=== PATIENT | male | born 1990 | race Caucasian/White ===

== ENCOUNTER 2016-09-23 08:21 | Emergency (ER) | payer MEDICAID ==
[~2016-09-23] VITALS: Ht 185.4 cm; Wt 117.9 kg
[~2016-09-23 08:21] MED LIST: ALBUTEROL2.5 MG/0.5 INH; AMOXICILLIN500 MG PO; AMOXIL500 MG PO; ANAPROX DS550 MG PO; ANTIVERT/2525 MG PO; AUGMENTIN 875875 MG PO; BACTRIM DS 8001 TA1 PO; CIPRO500 MG PO; CLARITIN10 MG PO; FLEXERIL10 MG PO; FLONASE 0.05% 121 EA NAS; LOMOTIL 0.025 M1 TA1 PO; MEDROL DOSEPAK4 MG PO; MOTRIN600 MG PO; MOTRIN800 MG PO; NKHM; ROBAXIN750 MG PO; ROBITUSSIN AC 110 ML PO; VIBRAMYCIN100 MG PO; VICODIN 5/500 505 MG PO; ZITHROMAX Z PA250 MG PO; ZOFRAN ODT4 MG SL
[2016-09-23] MEDS ORDERED: AVPAK AZITHROM250 M1 PO (08:44)
[2016-09-23] MEDS ORDERED: CEPACOL SORE T1 EAC1 MM (08:44)
== END 2016-09-23 11:00 | disposition home or self-care (01) ==
LOC: ED 08:21
DX: J02.9 Acute pharyngitis, unspecified (principal); F17.200 Nicotine dependence, unspecified, uncomplicated

== ENCOUNTER 2016-11-17 07:21 | Emergency (ER) | payer MEDICAID ==
[~2016-11-17] VITALS: Wt 117.9 kg
[~2016-11-17 07:21] MED LIST changes: +AVPAK AZITHROM250 M1 PO; +CEPACOL SORE T1 EAC1 MM
== END 2016-11-17 10:08 | disposition home or self-care (01) ==
LOC: ED 07:21
DX: H60.502 Unspecified acute noninfective otitis externa, left ear (principal); F17.200 Nicotine dependence, unspecified, uncomplicated; Z79.899 Other long term (current) drug therapy

== ENCOUNTER 2016-12-22 05:12 | Emergency (ER) | payer MEDICAID ==
[~2016-12-22] VITALS: Ht 185.4 cm; Wt 108.9 kg
== END 2016-12-22 06:08 | disposition home or self-care (01) ==
LOC: ED 05:12
DX: J06.9 Acute upper respiratory infection, unspecified (principal); R51 Headache; F17.200 Nicotine dependence, unspecified, uncomplicated

== ENCOUNTER 2017-03-15 19:36 | Emergency (ER) | payer MEDICAID ==
[~2017-03-15] VITALS: Ht 185.4 cm; Wt 108.9 kg
[2017-03-15] MEDS ORDERED: AMOXICILLIN500 M2 PO (20:19)
[2017-03-15] MEDS ORDERED: HYDROXYZINE PAM25 M1 PO (20:20)
[2017-03-15 22:16] LABS: BASO % 0.3 % (0.0-1.0); EOS # 0.2 10*3/uL (0.0-0.4); EOS % 2.4 % (1.0-4.0); HEMATOCRIT 45.4 % (42.0-52.0); LYMPH # 4.2 10*3/uL (1.3-4.4); MEAN CELL VOLUME 81.5 fl (80.0-94.0); MEAN CORPUSCULAR HGB 26.9 pg (27.0-31.0); MEAN PLATELET VOLUME 9.2 fl (9.6-12.3); MONO # 0.5 10*3/uL (0.1-1.0); MONO % 5.2 % (3.0-9.0); NEUT # 5.2 10*3/uL (2.3-7.9); NEUT % 50.8 % (47.0-73.0); PLATELET COUNT AUTOMATED 346 10*3/uL (130-400); RED BLOOD COUNT 5.57 10*6/uL (4.50-5.90); WHITE BLOOD COUNT 10.2 10*3/uL (4.8-10.8)
[2017-03-15 22:32] LABS: ALBUMIN 4.1 gm/dl (3.1-4.5); ALKALINE PHOSPHATASE 76 U/L (45-117); BUN 15 mg/dl (7-24); CHLORIDE 104 mmol/L (98-107); CREATININE 1.08 mg/dL (0.70-1.30); POTASSIUM 4.1 mmol/L (3.5-5.1); SGOT/AST 18 IU/L (3-35); SGPT/ALT 37 U/L (12-78); SODIUM 141 mmol/L (136-145); TOTAL PROTEIN 7.9 gm/dL (6.4-8.2)
[2017-03-15 22:46] LABS: ACT PARTIAL THROMBO TIME 25.9 SECONDS (20.8-31.5)
== END 2017-03-15 23:09 | disposition home or self-care (01) ==
LOC: ED 19:36
PROVIDERS: Student in an Organized Health Care Education/Training Program
DX: K62.5 Hemorrhage of anus and rectum (principal); F17.200 Nicotine dependence, unspecified, uncomplicated; F10.10 Alcohol abuse, uncomplicated; Z79.899 Other long term (current) drug therapy

== ENCOUNTER 2018-03-21 18:43 | Emergency (ER) | payer SELFPAY ==
[~2018-03-21] VITALS: Ht 185.4 cm; Wt 111.1 kg
[~2018-03-21 18:43] MED LIST changes: +AMOXICILLIN500 M2 PO; +HYDROXYZINE PAM25 M1 PO
== END 2018-03-21 20:37 | disposition home or self-care (01) ==
LOC: ED 18:43
DX: S60.212A Contusion of left wrist, initial encounter (principal); M25.512 Pain in left shoulder; M25.522 Pain in left elbow; F17.200 Nicotine dependence, unspecified, uncomplicated; V53.5XXA Driver of pick-up truck or van injured in collision with car, pick-up truck or van in traffic accident, initial encounter; Y93.89 Activity, other specified; Y92.413 State road as the place of occurrence of the external cause; Y99.8 Other external cause status

== ENCOUNTER 2018-12-06 19:48 | Emergency (ER) | payer SELFPAY ==
[~2018-12-06] VITALS: Ht 185.4 cm; Wt 113.4 kg
[~2018-12-06 19:48] MED LIST changes: +NAPROSYN500 MG PO
== END 2018-12-06 22:14 | disposition home or self-care (01) ==
LOC: ED 19:48
DX: S91.201A Unspecified open wound of right great toe with damage to nail, initial encounter (principal); X58.XXXA Exposure to other specified factors, initial encounter; Y93.89 Activity, other specified; Y92.69 Other specified industrial and construction area as the place of occurrence of the external cause; Y99.8 Other external cause status

== ENCOUNTER 2019-06-21 14:39 | Emergency (ER) | payer MEDICAID ==
[~2019-06-21] VITALS: Ht 185.4 cm; Wt 111.1 kg
== END 2019-06-21 16:57 | disposition home or self-care (01) ==
LOC: ED 14:39
DX: S00.33XA Contusion of nose, initial encounter (principal); J45.909 Unspecified asthma, uncomplicated; I10 Essential (primary) hypertension; V09.9XXA Pedestrian injured in unspecified transport accident, initial encounter; Y93.89 Activity, other specified; Y92.89 Other specified places as the place of occurrence of the external cause; Y99.8 Other external cause status

== ENCOUNTER 2019-08-19 08:59 | Emergency (ER) | payer MEDICAID ==
[~2019-08-19] VITALS: Ht 185.4 cm; Wt 111.1 kg
[2019-08-19] MEDS ORDERED: PREDNISONE20 M1 PO (09:48)
== END 2019-08-19 09:58 | disposition home or self-care (01) ==
LOC: ED 08:59
DX: L23.7 Allergic contact dermatitis due to plants, except food (principal); I10 Essential (primary) hypertension; J45.909 Unspecified asthma, uncomplicated

== ENCOUNTER 2019-11-06 05:46 | Emergency (ER) | payer MEDICAID ==
[~2019-11-06] VITALS: Ht 185.4 cm; Wt 120.2 kg
[~2019-11-06 05:46] MED LIST changes: +PREDNISONE20 M1 PO
[2019-11-06] MEDS ORDERED: AMOXICILLIN500 M2 PO (07:08)
[2019-11-06] MEDS ORDERED: IBUPROFEN600 MG PO (07:08)
== END 2019-11-06 07:14 | disposition home or self-care (01) ==
LOC: ED 05:46
DX: K08.89 Other specified disorders of teeth and supporting structures (principal); I10 Essential (primary) hypertension; J45.909 Unspecified asthma, uncomplicated; F17.200 Nicotine dependence, unspecified, uncomplicated; Z79.899 Other long term (current) drug therapy

== ENCOUNTER 2019-11-10 22:38 | Emergency (ER) | payer OTHER ==
[~2019-11-10] VITALS: Ht 187.9 cm; Wt 120.2 kg
[~2019-11-10 22:38] MED LIST changes: +IBUPROFEN600 MG PO
== END 2019-11-11 01:29 | disposition home or self-care (01) ==
LOC: ED 22:38
DX: K08.89 Other specified disorders of teeth and supporting structures (principal); I10 Essential (primary) hypertension; J45.909 Unspecified asthma, uncomplicated

== ENCOUNTER 2019-11-15 06:48 | Emergency (ER) | payer OTHER ==
[~2019-11-15] VITALS: Ht 185.4 cm; Wt 120.2 kg
[2019-11-15 07:56] LABS: BASO % 0.3 % (0.0-1.0); EOS # 0.1 10*3/uL (0.0-0.4); HEMATOCRIT 45.6 % (42.0-52.0); LYMPH # 2.2 10*3/uL (1.3-4.4); LYMPH % 20.5 % (27.0-41.0); MEAN CELL VOLUME 82.2 fl (80.0-94.0); MEAN CORPUSCULAR HGB 26.7 pg (27.0-31.0); MEAN CORPUSCULAR HGB CONC 32.5 g/dl (33.0-37.0); MONO # 0.7 10*3/uL (0.1-1.0); NEUT # 7.5 10*3/uL (2.3-7.9); NEUT % 70.8 % (47.0-73.0); PLATELET COUNT AUTOMATED 362 10*3/uL (130-400); RED BLOOD COUNT 5.55 10*6/uL (4.50-5.90); RED CELL DISTRI WIDTH 12.5 % (0-14.5); WHITE BLOOD COUNT 10.6 10*3/uL (4.8-10.8)
== END 2019-11-15 08:12 | disposition home or self-care (01) ==
LOC: ED 06:48
PROVIDERS: Emergency Medicine
DX: K08.89 Other specified disorders of teeth and supporting structures (principal); R61 Generalized hyperhidrosis; I10 Essential (primary) hypertension; J45.909 Unspecified asthma, uncomplicated

== ENCOUNTER 2020-02-17 13:55 | Emergency (ER) | payer OTHER ==
[~2020-02-17] VITALS: Ht 185.4 cm; Wt 120.2 kg
[2020-02-17] MEDS ORDERED: IBUPROFEN600 MG PO (15:25)
== END 2020-02-17 15:00 | disposition home or self-care (01) ==
LOC: ED 13:55
DX: M25.462 Effusion, left knee (principal); M25.562 Pain in left knee

== ENCOUNTER 2020-12-31 18:27 | Emergency (ER) | payer OTHER ==
[~2020-12-31] VITALS: Wt 129.3 kg
== END 2020-12-31 19:44 | disposition home or self-care (01) ==
LOC: ED 18:27
DX: R53.83 Other fatigue (principal); Z20.822 Contact with and (suspected) exposure to COVID-19; R19.7 Diarrhea, unspecified; R05 Cough; R11.2 Nausea with vomiting, unspecified

== ENCOUNTER 2021-04-17 20:53 | Emergency (ER) | payer OTHER ==
[~2021-04-17] VITALS: Ht 185.4 cm; Wt 127.0 kg
[2021-04-17] MEDS ORDERED: NAPROXEN250 MG PO (21:45)
== END 2021-04-17 22:06 | disposition home or self-care (01) ==
LOC: ED 20:53
DX: M79.645 Pain in left finger(s) (principal)

== ENCOUNTER 2021-04-20 17:54 | Emergency (ER) | payer OTHER ==
[~2021-04-20] VITALS: Wt 127.0 kg
[~2021-04-20 17:54] MED LIST changes: +NAPROXEN250 MG PO
[2021-04-20] MEDS ORDERED: PREDNISONE20 M1 PO (19:55)
[2021-04-20] MEDS ORDERED: PROVENTIL HFA6.7 GM INH (19:55)
== END 2021-04-20 20:13 | disposition home or self-care (01) ==
LOC: ED 17:54
DX: U07.1 COVID-19 (principal)

== ENCOUNTER 2021-08-14 07:46 | Emergency (ER) | payer OTHER ==
[~2021-08-14] VITALS: Wt 128.4 kg
[~2021-08-14 07:46] MED LIST changes: +PROVENTIL HFA6.7 GM INH
[2021-08-14] MEDS ORDERED: CETIRIZINE HYDR10 MG PO (08:05)
[2021-08-14] MEDS ORDERED: MELOXICAM7.5 MG PO (08:06)
[2021-08-14] MEDS ORDERED: TIZANIDINE2 MG PO (08:06)
[2021-08-14 08:23] LABS: BASO # 0.1 10*3/uL (0.0-0.1); BASO % 0.6 % (0.0-1.0); EOS # 0.2 10*3/uL (0.0-0.4); EOS % 2.2 % (1.0-4.0); HEMATOCRIT 44.6 % (42.0-52.0); LYMPH # 3.3 10*3/uL (1.3-4.4); LYMPH % 33.9 % (27.0-41.0); MEAN CELL VOLUME 80.9 fl (80.0-94.0); MEAN CORPUSCULAR HGB 26.7 pg (27.0-31.0); MEAN PLATELET VOLUME 9.2 fl (9.6-12.3); MONO # 0.7 10*3/uL (0.1-1.0); MONO % 6.7 % (3.0-9.0); NEUT # 5.5 10*3/uL (2.3-7.9); NEUT % 56.1 % (47.0-73.0); PLATELET COUNT AUTOMATED 327 10*3/uL (130-400); RED BLOOD COUNT 5.51 10*6/uL (4.50-5.90); RED CELL DISTRI WIDTH 13.2 % (0-14.5); WHITE BLOOD COUNT 9.8 10*3/uL (4.8-10.8)
[2021-08-14 08:41] LABS: BUN 13 mg/dl (7-24); CHLORIDE 110 mmol/L (98-107); CREATININE 0.98 mg/dL (0.70-1.30); SODIUM 140 mmol/L (136-145)
== END 2021-08-14 16:47 | disposition home or self-care (01) ==
LOC: ED 07:46
PROVIDERS: Emergency Medicine
DX: M54.16 Radiculopathy, lumbar region (principal); R26.89 Other abnormalities of gait and mobility; Z79.899 Other long term (current) drug therapy

== ENCOUNTER 2022-08-03 20:18 | Emergency (ER) | payer OTHER ==
[~2022-08-03] VITALS: Ht 185.4 cm; Wt 127.0 kg
[~2022-08-03 20:18] MED LIST changes: +CETIRIZINE HYDR10 MG PO; +MELOXICAM7.5 MG PO; +TIZANIDINE2 MG PO
[2022-08-03] MEDS ORDERED: PREDNISONE10 MG PO (21:43)
[2022-08-03] MEDS ORDERED: CLINDAMYCIN HC300 MG PO (21:43)
== END 2022-08-03 21:59 | disposition home or self-care (01) ==
LOC: ED 20:18
DX: J02.9 Acute pharyngitis, unspecified (principal); I10 Essential (primary) hypertension; J45.909 Unspecified asthma, uncomplicated; M79.7 Fibromyalgia

== ENCOUNTER 2022-08-04 17:42 | Emergency (ER) | payer OTHER ==
[~2022-08-04] VITALS: Wt 127.0 kg
[~2022-08-04 17:42] MED LIST changes: +CLINDAMYCIN HC300 MG PO; +PREDNISONE10 MG PO
== END 2022-08-04 20:10 | disposition home or self-care (01) ==
LOC: ED 17:42
DX: J02.9 Acute pharyngitis, unspecified (principal); I10 Essential (primary) hypertension; J45.909 Unspecified asthma, uncomplicated; M79.7 Fibromyalgia

== ENCOUNTER 2022-11-28 22:05 | Emergency (ER) | payer OTHER ==
[~2022-11-28] VITALS: Ht 185.4 cm; Wt 126.1 kg
[2022-11-28] MEDS ORDERED: AMOX-CLAV 875-1 EACH PO (23:08)
[2022-11-28] MEDS ORDERED: PREDNISONE20 M1 PO (23:08)
== END 2022-11-28 23:15 | disposition home or self-care (01) ==
LOC: ED 22:05
DX: H66.91 Otitis media, unspecified, right ear (principal); I10 Essential (primary) hypertension; J45.909 Unspecified asthma, uncomplicated; M79.7 Fibromyalgia

== ENCOUNTER 2023-12-15 17:59 | Emergency (ER) | payer SELFPAY ==
[~2023-12-15] VITALS: Ht 185.4 cm; Wt 108.9 kg
[~2023-12-15 17:59] MED LIST changes: +AMOX-CLAV 875-1 EACH PO
[2023-12-15] MEDS ORDERED: PREDNISONE20 M1 PO (18:36)
[2023-12-15] MEDS ORDERED: Acetaminophen/Oxycodone 5 MG/325 MG TABLET PO ONE (18:40)
[2023-12-15] MEDS ORDERED: methylPREDNISolone sod succ 125 MG VIAL IM ONE (18:40)
== END 2023-12-15 18:53 | disposition home or self-care (01) ==
LOC: ED 17:59
DX: S39.012A Strain of muscle, fascia and tendon of lower back, initial encounter (principal); I10 Essential (primary) hypertension; J45.909 Unspecified asthma, uncomplicated; M79.7 Fibromyalgia; X50.1XXA Overexertion from prolonged static or awkward postures, initial encounter; Y93.89 Activity, other specified; Y92.89 Other specified places as the place of occurrence of the external cause; Y99.8 Other external cause status

== ENCOUNTER 2024-02-27 06:46 | Emergency (ER) | payer OTHER ==
[~2024-02-27] VITALS: Wt 106.6 kg
[2024-02-27] MEDS ORDERED: Ondansetron Hydrochloride 4 MG TAB PO ONE (08:55)
[2024-02-27] MEDS ORDERED: AVPAK AZITHROM250 M1 PO (09:25)
== END 2024-02-27 09:34 | disposition home or self-care (01) ==
LOC: ED 06:46
DX: J45.909 Unspecified asthma, uncomplicated (principal); Z20.822 Contact with and (suspected) exposure to COVID-19; R11.2 Nausea with vomiting, unspecified; R07.89 Other chest pain; R53.83 Other fatigue; I10 Essential (primary) hypertension; M79.7 Fibromyalgia; M19.90 Unspecified osteoarthritis, unspecified site

== ENCOUNTER 2024-03-04 15:17 | Emergency (ER) | payer OTHER ==
[~2024-03-04] VITALS: Wt 104.3 kg
[2024-03-04] MEDS ORDERED: Albuterol Sulfate 2.5 MG/3 ML VIAL NEB ONE (15:45)
[2024-03-04] MEDS ORDERED: PREDNISONE20 M1 PO (15:47)
[2024-03-04] MEDS ORDERED: LEVOFLOXACIN750 M2 PO (15:47)
[2024-03-04] MEDS ORDERED: BENZONATATE100 M1 PO (15:47)
[2024-03-04] MEDS ORDERED: VENT7GM INH (15:47)
== END 2024-03-04 16:51 | disposition home or self-care (01) ==
LOC: ED 15:17
DX: J40 Bronchitis, not specified as acute or chronic (principal); F17.210 Nicotine dependence, cigarettes, uncomplicated; Z79.2 Long term (current) use of antibiotics; Z79.899 Other long term (current) drug therapy

== ENCOUNTER 2024-10-14 17:16 | Emergency (ER) | payer OTHER ==
[~2024-10-14] VITALS: Wt 106.6 kg
[~2024-10-14 17:16] MED LIST changes: +BENZONATATE100 M1 PO; +LEVOFLOXACIN750 M2 PO; +VENT7GM INH
[2024-10-14] MEDS ORDERED: Ondansetron Hydrochloride 4 MG/2 ML VIAL IV ONE (17:50)
[2024-10-14] MEDS ORDERED: SODIUM CHLORIDE 0.9% 1,000 ML IV ONE (17:50)
[2024-10-14 18:02] LABS: BASO % 0.5 % (0.0-1.0); EOS # 0.2 10*3/uL (0.0-0.4); EOS % 2.9 % (1.0-4.0); HEMATOCRIT 41.2 % (42.0-52.0); MEAN CELL VOLUME 83.9 fl (80.0-94.0); MEAN CORPUSCULAR HGB 27.3 pg (27.0-31.0); MEAN CORPUSCULAR HGB CONC 32.5 g/dl (33.0-37.0); MEAN PLATELET VOLUME 9.4 fl (9.6-12.3); MONO # 0.7 10*3/uL (0.1-1.0); MONO % 8.1 % (3.0-9.0); NEUT # 4.5 10*3/uL (2.3-7.9); PLATELET COUNT AUTOMATED 267 10*3/uL (130-400); RED BLOOD COUNT 4.91 10*6/uL (4.50-5.90); RED CELL DISTRI WIDTH 13.2 % (0-14.5); WHITE BLOOD COUNT 8.4 10*3/uL (4.8-10.8)
[2024-10-14 18:25] LABS: ALKALINE PHOSPHATASE 60 U/L (46-116); BUN 13 mg/dl (9-23); CHLORIDE 104 mmol/L (98-107); POTASSIUM 3.9 mmol/L (3.4-5.1); SGPT/ALT 19 U/L (5-49); TOTAL PROTEIN 6.5 gm/dL (6.0-8.0)
[2024-10-14 19:15] LABS: BILIRUBIN Negative (Negative); BLOOD Negative (Negative); CLARITY Clear (Clear); COLOR Yellow (Yellow); GLUCOSE Negative (Negative); KETONE Trace (Negative); LEUKO ESTERASE Negative (Negative); NITRITE Negative (Negative); SPECIFIC GRAVITY 1.025 (1.001-1.030)
[2024-10-14 19:47] LABS: WBC 0-2 wbc/hpf (0-5)
== END 2024-10-14 20:20 | disposition home or self-care (01) ==
LOC: ED 17:16
PROVIDERS: Internal Medicine
DX: T67.9XXA Effect of heat and light, unspecified, initial encounter (principal); R42 Dizziness and giddiness; E86.0 Dehydration; E51.9 Thiamine deficiency, unspecified; R11.2 Nausea with vomiting, unspecified; X58.XXXA Exposure to other specified factors, initial encounter; Y93.89 Activity, other specified; Y92.89 Other specified places as the place of occurrence of the external cause; Y99.8 Other external cause status

== ENCOUNTER 2024-10-17 17:25 | Emergency (ER) | payer OTHER ==
[~2024-10-17] VITALS: Ht 172.7 cm; Wt 117.9 kg
[2024-10-17] MEDS ORDERED: Ondansetron Hydrochloride 4 MG TAB SL ONE (20:30)
[2024-10-17] MEDS ORDERED: Acetaminophen/Hydrocodone 5 MG/325 MG TABLET PO ONE (20:30)
[2024-10-17] MEDS ORDERED: NAPROSYN500 MG PO (20:38)
[2024-10-17] MEDS ORDERED: METHOCARBAMOL750 M1 PO (20:38)
== END 2024-10-17 21:07 | disposition home or self-care (01) ==
LOC: ED 17:25
DX: S20.212A Contusion of left front wall of thorax, initial encounter (principal); W13.2XXA Fall from, out of or through roof, initial encounter; Y93.89 Activity, other specified; Y92.89 Other specified places as the place of occurrence of the external cause; Y99.8 Other external cause status

== ENCOUNTER 2025-01-15 16:08 | Emergency (ER) | payer OTHER ==
[~2025-01-15] VITALS: Wt 115.7 kg
[~2025-01-15 16:08] MED LIST changes: +METHOCARBAMOL750 M1 PO
[2025-01-15] MEDS ORDERED: SODIUM CHLORIDE 0.9% 1,000 ML IV ONE (16:30)
[2025-01-15 16:45] LABS: BASO # 0.1 10*3/uL (0.0-0.1); BASO % 0.5 % (0.0-1.0); EOS # 0.2 10*3/uL (0.0-0.4); EOS % 2.1 % (1.0-4.0); MEAN CELL VOLUME 81.9 fl (80.0-94.0); MEAN CORPUSCULAR HGB 27.6 pg (27.0-31.0); MEAN PLATELET VOLUME 9.5 fl (9.6-12.3); MONO # 0.7 10*3/uL (0.1-1.0); MONO % 6.4 % (3.0-9.0); NEUT # 6.1 10*3/uL (2.3-7.9); NEUT % 58.8 % (47.0-73.0); NUCLEATED RED BLOOD CELL 0.0 % (0.0-0.0); NUCLEATED RED BLOOD CELL 0.0 10*3/uL (0.0-0.0); PLATELET COUNT AUTOMATED 283 10*3/uL (130-400); RED CELL DISTRI WIDTH 13.0 % (0-14.5)
[2025-01-15 17:05] LABS: BUN 13 mg/dl (9-23); SGPT/ALT 23 U/L (5-49)
[2025-01-15 17:26] LABS: BILIRUBIN Negative (Negative); BLOOD Negative (Negative); CLARITY Clear (Clear); COLOR Yellow (Yellow); KETONE Negative (Negative); LEUKO ESTERASE Negative (Negative); NITRITE Negative (Negative); PH 5.5 (4.5-8.0); SPECIFIC GRAVITY 1.020 (1.001-1.030); UROBILINOGEN 1.0 E.U./dl (0.0-1.0)
== END 2025-01-15 18:18 | disposition home or self-care (01) ==
LOC: ED 16:08
PROVIDERS: Nurse Practitioner Family
DX: E86.0 Dehydration (principal); M54.50 Low back pain, unspecified; R11.0 Nausea; R63.0 Anorexia; R82.90 Unspecified abnormal findings in urine; R42 Dizziness and giddiness; Z79.899 Other long term (current) drug therapy